=== PATIENT | female | born 1955 | race Caucasian/White ===

== ENCOUNTER 2016-11-07 12:09 | Outpatient (CLI) | payer BC ==
[2016-11-07 14:24] VITALS: BP 124/87; PULSE 99; RESP 18; TEMP 98
--- NOTE | 2016-11-07 15:16 | US ---
Ultrasound left groin HISTORY: Seroma postop Correlation to previous exam 02 November 2016 Multiseptated collection is present in the left groin as on prior exam measuring approximately 7 x 3. 6 cm by 6.7 cm. IMPRESSION: Multilocular collection left groin as on prior exam. Procedure was aborted by Dr. Farrell .
== END 2016-11-07 14:10 | disposition home or self-care (01) ==
LOC: RADPROMAIN 12:09
PROVIDERS: ATTEND Radiology Diagnostic Radiology
DX: C43.9 Malignant melanoma of skin, unspecified (principal); C77.9 Secondary and unspecified malignant neoplasm of lymph node, unspecified

== ENCOUNTER → 2016-11-14 | Outpatient (CLI) | payer BC ==
[2016-11-14 15:38] VITALS: BP 111/68; PULSE 68; RESP 18; TEMP 98.3
--- NOTE | 2016-11-14 19:11 | US ---
Ultrasound-guided left seroma fine-needle aspiration HISTORY: Chills with discharged through scan from underlying seroma. Possible infected seroma request for FNA to obtain sample. The procedure was discussed with the patient. The risks, complications, benefits and alternatives wer e discussed. Any questions were answered and informed consent was obtained. All elements of maximal barrier technique were utilized. The patient was placed supine on the ultrasound table, prepped and draped in the usual sterile fashi on. Utilizing 18-gauge needle access in the the area of concern was achieved. No sizable amount of p us or purulent material aspirated. The open wound was swabbed and sent for analysis. The patient remained stable throughout procedure and is stable upon discharge from the Department of radiology. IMPRESSION: 1. Successful ultrasound guided FNA soft tissue seroma as discussed above.
--- NOTE | 2016-11-14 19:16 | US ---
EXAMINATION TYPE: US groin extremity LT DATE OF EXAM: 11/14/2016 2:30 PM COMPARISON: NONE CLINICAL HISTORY: Seroma Findings: No sizable fluid collection is seen for percutaneous drainage tube placement. However, there are smal l pockets of fluid near the area of discharge. Majority of the area appears to be an organized appea ring seroma. IMPRESSION: 1. Organizing seroma..
== END | disposition home or self-care (01) ==
LOC: RADPROMAIN 12:15
PROVIDERS: ATTEND Radiology Diagnostic Radiology
DX: T81.4XXA Infection following a procedure, initial encounter (principal)
CPT/HCPCS: 10160; 87070; 87075; 87077; 87186; 87205

== ENCOUNTER → 2017-05-24 | Outpatient (CLI) | payer OTHER ==
--- NOTE | 2017-05-24 14:41 | CT ---
EXAMINATION TYPE: CT ChestAbdPelvis w con DATE OF EXAM: 05/24/2017 INDICATION: Melanoma. Observe for Mets COMPARISON: NONE CT DLP: 1416.70 mGycm CONTRAST: Performed with Oral Contrast and with IV Contrast, patient injected with 100 ml mL of Omnipaque 300. TECHNIQUE: Axial images at 5 mm thick sections. Reconstructed images in the coronal plane. Delayed images through the kidneys. FINDINGS: CT CHEST: Portion of the thyroid visualized is normal. No suspicious lung nodules or focal infiltrates are present. Hyperdense possibly calcified area withi n the anterior right lower lobe appears opal measuring 0.8 cm AP dimension No enlarged mediastinal or hilar adenopathy is evident. The ascending aorta diameter at the level of the main pulmonary artery is 3.5 cm. The main pulmonary artery diameter at the bifurcation is 2.2 cm. Coronary artery calcification is present. CT ABDOMEN: Liver: There is a 1.5 cm cyst superior right lobe liver. Additional subcortical cyst in the anterior medial right 2 cm and 2 punctate area measuring 0.6 cm in the left lobe liver. Spleen: Normal Pancreas: Atrophy with fatty infiltration Adrenal glands: The adrenal glands are normal. Gallbladder: Normal Kidneys: No masses are evident. No hydronephrosis is present. No cysts are present. Delayed images were obtained through the kidneys, which remain unremarkable. Aorta: Vascular calcification is within the aorta. Inferior vena cava: Normal. CT PELVIS: Loops of bowel within the abdomen and pelvis are normal. There are loops of bowel which are incom pletely distended or lack oral contrast limiting their evaluation. Appendix: Normal as visualized. Urinary bladder: Normal. Genitourinary structures: Uterus is normal. Adnexal regions are clear. Osseous structures: No suspicious lytic or sclerotic lesions. The left inguinal region has a spiculated inflammatory change which can be postsurgical in nature. Th is is somewhat of a solid appearance measuring 5.7 x 5.0 cm in size. Clinical correlation is recommen ded. This area extends out of the [id number] limiting region.. IMPRESSIONS: 1. Postsurgical changes or inflammatory changes left inguinal region discussed above. The discrete la rge hyperdense lymph nodes present previously are absent. 2. Hypodense lesions within the left lobe liver, one of which appears new, and right lobe hepatic hyp odensities. Correlation with PET/CT is recommended.
== END | disposition home or self-care (01) ==
LOC: RADCTMAIN 10:47
PROVIDERS: ATTEND Internal Medicine Hematology & Oncology
DX: K76.89 Other specified diseases of liver (principal); C43.72 Malignant melanoma of left lower limb, including hip; Z98.890 Other specified postprocedural states
CPT/HCPCS: 71260; 74177; Q9967

== ENCOUNTER → 2017-07-07 | Outpatient (CLI) | payer OTHER ==
--- NOTE | 2017-07-07 10:51 | PE ---
EXAMINATION TYPE: PET CT fusion whole body DATE OF EXAM: 07/07/2017 COMPARISON: PET/CT November 04, 2016. CT cap May 24, 2017. HISTORY: Left leg melanoma progress study. TECHNIQUE: Following the intravenous administration of 15.3 mCi of F-18 FDG, whole body images are p erformed from the top of skull to the bottom of feet. Images are reviewed on the computer in the cor onal, axial, and sagittal planes. Reconstructed rotating images are created on independent workstati on and reviewed on the computer. A localization and attenuation correction CT is performed in conju nction with the PET scan. SCAN: Subsequent Scan FINDINGS: HEAD AND NECK: No new suspicious hypermetabolic uptake is seen in the head or neck. CHEST, MEDIASTINUM, AND HILAR REGION: No new suspicious hypermetabolic uptake is seen in the chest. ABDOMEN AND PELVIS:Normal bowel and bladder uptake is present. Slightly more prominent focal hypermet abolic uptake in the proximal sigmoid colon on axial image 246 is noted and should be correlated with colonoscopy if has not been performed in last 3 years. No additional new suspicious hypermetabolic u ptake is seen in the abdomen or pelvis with particular attention to liver at area of concern on recen t CT. OSSEOUS STRUCTURES: No new suspicious hypermetabolic uptake is seen in osseous structures. EXTREMITIES: There is some persistent hypermetabolic ill-defined fluid in the medial anterior left gr oin at area of prior excision. This is diminished in size from prior exam now measuring 4.0 x 2.3 cm on axial image 14. Suspect resolving surgical and inflammatory change. No new areas of abnormal hyper metabolic uptake are present. OTHER CT: There is redemonstration of right-sided pericardial calcifications. There is opal nonhyp ermetabolic 8 x 7 mm partially calcified nodule anterior right lung base on axial image 125. There is redemonstration of 1.5 cm low dense lesion anterior right hepatic dome on axial image 134 fa voring simple cyst. There is stable 1.2 cm hypodense lesion anterior left hepatic lobe on axial image 153 presumed benign. Redemonstration of a small to moderate-sized right popliteal cyst at knee level on axial image 115. There is redemonstration asymmetric enlargement of the left lower extremity with more focal subcutane ous edema in the left mid to distal leg and ankle focal soft tissue swelling over the medial and late ral malleoli redemonstrated. There is suspected surgical change in the posterior medial mid to distal leg on axial image 179 redemonstrated. IMPRESSION: No convincing evidence of suspicious new hypermetabolic uptake to suggest melanoma recurr ence. Attention to proximal sigmoid colon, colonoscopy correlation advised. Postsurgical change left groin and lower leg level redemonstrated.
== END | disposition home or self-care (01) ==
LOC: RADPETMAIN 07:26
PROVIDERS: ATTEND Internal Medicine Hematology & Oncology
DX: C43.72 Malignant melanoma of left lower limb, including hip (principal); Z98.890 Other specified postprocedural states
CPT/HCPCS: 78816; A9552

== ENCOUNTER 2017-08-20 08:19 | Day surgery (SDC) | payer OTHER ==
[2017-08-16 11:51] VITALS: BMI 31.3
[~2017-08-20 08:19] MED LIST: LACTATED RINGERS 1,000 ML IV SCH; LIDOCAINE 1% 20 ML VIAL (10MG/ML) FOR IV START INTRADERMA PRN
[2017-08-20 10:09] VITALS: TEMP 97.8
[2017-08-20] MEDS ORDERED: PROPOFOL 10 MG/ML 20 ML VIAL IV ONE (10:15)
[2017-08-20] MEDS ORDERED: LIDOCAINE 1% INJ 10MG/ML (20 ML MDV) ONE (10:15)
--- NOTE | 2017-08-20 10:16 | P.GSHP ---
History of Present Illness H&P Date: 08/20/17 Chief Complaint: Screening colonoscopy This is a 62-year-old female who presents today for screening colonoscopy. She' s never had a colonoscopy before. She denies a significant GI complaints. Past Medical History Past Medical History: Cancer, Hypertension, Osteoarthritis (OA), Thyroid Disorder Additional Past Medical History / Comment(s): melanoma 2015-no chemo or radiation due to unnamed auto-immune disorder, takes metformin for eating disorder(nocturnal eating) not diabetes, migraine headaches, lymphedema left leg & frequent pain, recent PET scan shows something History of Any Multi-Drug Resistant Organisms: MRSA Date of last positivie culture/infection: 2011 MDRO Source:: leftlower leg Past Surgical History: Appendectomy Additional Past Surgical History / Comment(s): skin cancer removed and skin graft to left lower leg, tumor removed from thyroid, uterine fibroids, lymph nodes removed lt groin Past Anesthesia/Blood Transfusion Reactions: No Reported Reaction Smoking Status: Never smoker - Past Family History Mother Family Medical History: No Reported History Medications and Allergies Home Medications Medication Instructions Recorded Confirmed Type HYDROcodone/APAP 10-325MG [[place] 1 each PO Q6H PRN 03/25/15 08/20/17 History 10] Levothyroxine Sodium [Synthroid] 25 mcg PO DAILY 03/25/15 08/20/17 History Losartan-Hctz 50-12.5 mg [Hyzaar 1 each PO DAILY 03/25/15 08/20/17 History 50-12.5] Amitriptyline HCl [Elavil] 100 mg PO HS 07/03/16 08/20/17 History metFORMIN HCL [metFORMIN HCL ER] 1,000 mg PO DAILY 07/03/16 08/20/17 History ALPRAZolam [Xanax] 1 mg PO BID PRN 08/16/17 08/20/17 History Allergies Allergy/AdvReac Type Severity Reaction Status Date / Time No Known Allergies Allergy Verified 08/20/17 09:51 Surgical - Exam Vital Signs Temp Pulse Resp BP Pulse Ox 97.8 F 70 18 147/79 99 08/20/17 10:05 08/20/17 10:05 08/20/17 10:05 08/20/17 10:05 08/20/17 10:05 - General well developed, no distress - Eyes PERRL - ENT normal pinna - Neck no masses - Respiratory normal expansion - Cardiovascular Rhythm: regular - Abdomen Abdomen: soft, non tender Assessment and Plan Plan: We'll perform screening colonoscopy.
[2017-08-20 10:32] LABS: Glucose,Whole Blood 86 mg/dL (75-99)
--- NOTE | 2017-08-20 10:34 | P.OP ---
Date of Procedure: 08/20/17 Preoperative Diagnosis: Screening colonoscopy Postoperative Diagnosis: Transverse colon polyp, cecal polyp, diverticulosis Procedure(s) Performed: Colonoscopy Anesthesia: LORENA Surgeon: Kushal Piedra Pathology: other (Cecal, transverse colon polyp) Condition: stable Disposition: PACU Description of Procedure: The patient's placed on the endoscopy table in the lateral position. She received IV sedation. Digital rectal exam was performed which revealed a few external hemorrhoids. Flexible colonoscope was then placed patient anus passed throughout the entire colon. The ileocecal valve was visualized. The cecum was visualized. There was a small sessile polyp. This removed the forcep. Scope was withdrawn remainder the ascending colon appeared normal. In the proximal transverse colon there is another polyp seen this removed with snare. The remainder of the transverse colon appeared normal. In the descending and sigmoid colon was mild diverticular changes. Scope was then brought back into the rectum and this appeared normal. Scope was withdrawn for patient.
[2017-08-20 10:45] VITALS: RESP 16
[2017-08-20] MEDS ORDERED: HYDROmorphone 1 MG/ML 1 ML SYRINGE IVP ONE (11:00)
[2017-08-20 11:51] VITALS: BP 132/70; PULSE 89
== END 2017-08-20 12:21 | disposition home or self-care (01) ==
LOC: ORWHC2ENDO 08:19
PROVIDERS: ATTEND Surgery
DX: Z12.11 Encounter for screening for malignant neoplasm of colon (principal); D12.3 Benign neoplasm of transverse colon; K63.5 Polyp of colon; K57.30 Diverticulosis of large intestine without perforation or abscess without bleeding; K64.4 Residual hemorrhoidal skin tags; I10 Essential (primary) hypertension; E11.9 Type 2 diabetes mellitus without complications; E07.9 Disorder of thyroid, unspecified; F41.9 Anxiety disorder, unspecified; Z79.899 Other long term (current) drug therapy; Z79.84 Long term (current) use of oral hypoglycemic drugs; Z86.14 Personal history of Methicillin resistant Staphylococcus aureus infection; Z85.820 Personal history of malignant melanoma of skin
CPT/HCPCS: 45385; 45380; 88305; J2001; J1170; J2704

== ENCOUNTER → 2018-01-07 | Outpatient (CLI) | payer OTHER ==
--- NOTE | 2018-01-07 14:50 | CT ---
EXAMINATION TYPE: CT ChestAbdPelvis w con DATE OF EXAM: 01/07/2018 COMPARISON: 05/24/2017 and PET/CT dated 07/07/2017 HISTORY: Patient has no complaints at time of service. Follow up study for known left leg melanoma. CT DLP: 1804 mGycm. Automated Exposure Control for Dose Reduction was Utilized. CONTRAST: CT scan of the thorax, abdomen and pelvis is performed with IV Contrast, patient injected with 100 mL of Omnipaque 300. FINDINGS: LUNGS: The lungs are grossly clear, there is no concerning parenchymal mass or nodule identified. C alcified benign right middle lobe granuloma is noted. There is no pleural effusion or pneumothorax se en. The tracheobronchial tree is patent. MEDIASTINUM: There are no greater than 1 cm hilar or mediastinal lymph nodes. No pericardial effusi on is seen. Pericardial calcification is noted, likely sequela of prior injury or inflammation. LIVER/GB: 1.8 cm hepatic cyst and other smaller probable hepatic cysts are seen on series 3 image 43, 50, and 56. Bladder is elongated with no evidence of cholelithiasis. There is diffuse hypoattenuatio n of the hepatic parenchyma, most commonly related to hepatic steatosis. This limits evaluation for h epatic masses. PANCREAS: Mild pancreatic parenchymal atrophy is noted. No ductal dilatation. SPLEEN: No significant abnormality is seen. No splenomegaly. ADRENALS: No significant abnormality is seen. No nodularity or thickening. KIDNEYS: Too small to accurately characterize right renal lesion is redemonstrated and on series 3 im age 64 measuring 5 mm. BOWEL: No significant abnormality is seen. GENITAL ORGANS: Uterus is diffusely heterogenous and multilobulated containing dystrophic calcificati ons from degenerative uterine fibroids. LYMPH NODES: No greater than 1cm abdominal or pelvic lymph nodes are appreciated. OSSEOUS STRUCTURES: There is a 1 cm sclerotic focus within the left iliac bone that appears similar a nd stable from the exam of 05/24/2017. This lesion is indeterminate, however this is also seen in the exam of 07/25/2016 and favored to represent a benign bone island given the overall stability. OTHER: There is redemonstration of fluid along the fascial planes in the left superficial inguinal an d femoral region. This is overall decrease in size when measured in a similar fashion in comparison t o the prior 05/24/2017 and currently measuring 4.6 x 2.7 cm and previously measuring 5.0 x 5.7 cm. IMPRESSION: 1. No new evidence of visceral metastasis or adenopathy within the chest, abdomen, or pelvis. 2. Stable hepatic cysts, probable left iliac bone island, decreasing left superficial inguinal/femora l postoperative fluid collection, and too small to accurately characterize right renal lesion.
== END | disposition home or self-care (01) ==
LOC: RADCTMAIN 11:22
PROVIDERS: ATTEND Internal Medicine Hematology & Oncology
DX: C43.72 Malignant melanoma of left lower limb, including hip (principal); K76.89 Other specified diseases of liver; R19.09 Other intra-abdominal and pelvic swelling, mass and lump
CPT/HCPCS: 71260; 74177; Q9967

== ENCOUNTER → 2018-05-27 | Outpatient (CLI) | payer OTHER ==
--- NOTE | 2018-05-27 16:35 | XR ---
EXAMINATION TYPE: XR chest 2V DATE OF EXAM: 05/27/2018 COMPARISON: None HISTORY: 63-year-old female cough and shortness of breath for 2 weeks follow-up history of melanoma TECHNIQUE: PA and lateral views FINDINGS: The heart is upper limits of normal in size. Aorta and pulmonary vasculature within normal limits. So me pericardial calcifications are noted along the right atrium/right ventricle. No consolidation or p leural effusion. IMPRESSION: Stable pericardial calcifications suggesting prior infection/inflammation of the pericardium. Borderl ine heart size. No acute cardiopulmonary process.
== END | disposition home or self-care (01) ==
LOC: RADXRMAIN 14:22
PROVIDERS: ATTEND Nurse Practitioner Adult Health
DX: I31.1 Chronic constrictive pericarditis (principal); C43.72 Malignant melanoma of left lower limb, including hip; I89.0 Lymphedema, not elsewhere classified; G89.3 Neoplasm related pain (acute) (chronic); I10 Essential (primary) hypertension
CPT/HCPCS: 71046

== ENCOUNTER → 2018-06-07 | Outpatient (CLI) | payer OTHER ==
--- NOTE | 2018-06-07 13:46 | CT ---
EXAMINATION TYPE: CT ChestAbdPelvis w con DATE OF EXAM: 06/07/2018 COMPARISON: 01/07/2018 and PET/CT dated 07/07/2017 HISTORY: Patient has no complaints at time of study. Follow up for known melanoma. CT DLP: 1506.7 mGycm. Automated Exposure Control for Dose Reduction was Utilized. CONTRAST: CT scan of the thorax, abdomen and pelvis is performed with IV Contrast, patient injected with 100 mL of Isovue 300. FINDINGS: LUNGS: The lungs are grossly clear, there is no concerning parenchymal mass or nodule identified. Is redemonstration of a calcified benign right middle lobe granuloma. There is no pleural effusion or p neumothorax seen. The tracheobronchial tree is patent. MEDIASTINUM: There are no greater than 1 cm hilar or mediastinal lymph nodes. Again there is pericar dial calcification, likely sequela of prior pericarditis. No pericardial effusion is seen. LIVER/GB: Within the liver there are multiple hypoattenuated hepatic lesions the largest measuring 1. 8 cm representing a hepatic cyst and the others likely representing hepatic cysts, stable from the pr ior. No cholelithiasis. Hypoattenuation of the hepatic parenchyma most commonly relates to hepatic st eatosis and limits evaluation for hepatic masses. PANCREAS: Mild to moderate pancreatic parenchymal atrophy is seen without ductal dilatation. SPLEEN: No significant abnormality is seen. No splenomegaly. ADRENALS: Adrenal glands are somewhat diminutive but similar to the prior. KIDNEYS: The previously seen partially exophytic too small to accurately characterize right renal les ion is stable.Otherwise the kidneys enhance and excrete symmetrically without hydronephrosis. BOWEL: There is a moderate amount retained colonic stool. No evidence of dilated large or small bowel . GENITAL ORGANS: Again the uterus is heterogenous containing multiple calcifications, likely from dege nerative uterine leiomyomas. LYMPH NODES: No greater than 1cm abdominal or pelvic lymph nodes are appreciated. OSSEOUS STRUCTURES: Probable benign bone island is redemonstrated within the left iliac bone, overall unchanged from 2016 this is seen in series 3 image 106. Multilevel mild degenerative changes of the spine are noted. OTHER: Within the left superficial inguinal region and femoral region there is redemonstration of irr egular fluid along the fascial planes with extent to the skin surface. Although [id number] does no t extend to the similar location where measured on the prior exam this appears overall similar and pa rtially likely relates to fibrotic change. IMPRESSION: 1. No new evidence of visceral metastasis, osseous metastasis or adenopathy within the chest, abdomen , or pelvis. 2. Overall similar morphology of the left superficial inguinal/femoral postoperative fluid collection and probable component of fibrosis. 3. Stable hepatic cysts and other hepatic lesion that is too small to accurately characterize is also stable.
== END | disposition home or self-care (01) ==
LOC: RADCTMAIN 11:16
PROVIDERS: ATTEND Internal Medicine Hematology & Oncology
DX: K76.89 Other specified diseases of liver (principal); C43.72 Malignant melanoma of left lower limb, including hip
CPT/HCPCS: 71260; 74177; Q9967

== ENCOUNTER 2018-08-03 20:09 | Emergency (ER) | payer OTHER ==
[2018-08-03 20:17] VITALS: TEMP 98.2
--- NOTE | 2018-08-03 20:34 | ED ---
Lower Extremity Injury HPI - General Chief Complaint: Extremity Injury, Lower Stated Complaint: Fall Time Seen by Provider: 08/03/18 20:23 Source: patient, EMS, RN notes reviewed Mode of arrival: EMS Limitations: no limitations - History of Present Illness Initial Comments: This is a 63-year-old female who presents to the emergency department with chief complaint of fall injury. Patient states she was walking down her basement steps at approximately 7:30 PM. She states that her left leg gave out and she fell down 3-4 steps. She states that she landed on her left side. Patient complains of left knee pain. She states she was unable to get up off the ground and her fianc called EMS. Patient reports limited range of motion to the left knee due to pain. She states that there is a sharp shooting pain that starts at the knee and radiates up to her groin. She denies hitting her head. Denies loss of consciousness. Denies neck or back pain. Denies any other injuries or trauma. Patient does not take blood thinners. She denies abdominal pain, nausea or vomiting. She does state that she feels numbness in her left thigh, however this is baseline for her since having extensive melanoma surgery to the left groin. - Related Data Home Medications Medication Instructions Recorded Confirmed HYDROcodone/APAP 10-325MG [[place] 1 tab PO Q6H PRN 03/25/15 02/22/18 10] Levothyroxine Sodium [Synthroid] 25 mcg PO DAILY 03/25/15 02/22/18 Losartan-Hctz 50-12.5 mg [Hyzaar 1 tab PO DAILY 03/25/15 02/22/18 50-12.5] Amitriptyline HCl [Elavil] 100 mg PO HS 07/03/16 02/22/18 metFORMIN HCL [metFORMIN HCL ER] 1,000 mg PO HS 07/03/16 02/22/18 Allergies Allergy/AdvReac Type Severity Reaction Status Date / Time oxycodone Allergy Itching Verified 08/03/18 20:17 Review of Systems ROS Statement: Those systems with pertinent positive or pertinent negative responses have been documented in the HPI. ROS Other: All systems not noted in ROS Statement are negative. Past Medical History Past Medical History: Cancer, Hypertension, Osteoarthritis (OA), Thyroid Disorder Additional Past Medical History / Comment(s): melanoma 2015-no chemo or radiation due to unnamed auto-immune disorder, takes metformin for eating disorder(nocturnal eating) not diabetes, migraine headaches, lymphedema left leg & frequent pain, recent PET scan shows something History of Any Multi-Drug Resistant Organisms: MRSA Date of last positivie culture/infection: 2011 MDRO Source:: leftlower leg Past Surgical History: Appendectomy Additional Past Surgical History / Comment(s): skin cancer removed and skin graft to left lower leg, tumor removed from thyroid, uterine fibroids, lymph nodes removed lt groin Past Anesthesia/Blood Transfusion Reactions: No Reported Reaction Past Psychological History: Anxiety Smoking Status: Never smoker - Past Family History Mother Family Medical History: No Reported History General Exam - General Exam Comments Initial Comments: General: Awake and alert, well-developed; in mild distress due to pain. HEENT: Head atraumatic, normocephalic. Pupils are equal, round and reactive to light. Extraocular movements intact. Oropharynx moist without erythema or exudate. Neck: Supple. Normal ROM. Cardiovascular: Regular rate and rhythm. No murmurs, rubs or gallops. Chest symmetrical. Respiratory: Lungs clear to auscultation bilaterally. No wheezes, rales or rhonchi. Normal respiratory effort with no use of accessory muscles. Musculoskeletal: Normal range of motion of the left ankle and hip. Limited active range of motion of the left knee due to pain. There is generalized tenderness, soft tissue swelling noted. Sensation is intact. Pedal pulses are 2+ equal and palpable bilaterally. No obvious gross deformities. Skin: [place], warm and dry without rashes or lesions. Neurological: Alert and oriented x3. CN II-XII grossly intact. Speech is fluent and answers are appropriate. No focal neuro deficits. Psychiatric: Normal mood and affect. No overt signs of depression or anxiety noted. Limitations: no limitations Course Vital Signs 08/03/18 08/03/18 20:13 22:14 Temperature 98.2 F Pulse Rate 95 94 Respiratory 28 H 20 Rate Blood Pressure 154/86 136/69 O2 Sat by Pulse 100 94 L Oximetry Medical Decision Making - Medical Decision Making This is a 63-year-old female who presents to the emergency department with chief complaint of fall injury. Patient reports her left leg giving out and falling down 3-4 steps. She states she landed on her left side. Complains of left knee pain. States she is unable to bear weight or ambulate. X-ray of the left knee was obtained which revealed evidence for a possible tibial plateau fracture. For further evaluation, a computed tomography scan was obtained. This revealed slightly impacted intra-articular chip fractures of the posterior medial and lateral tibial plateaus. Knee immobilizer was placed. Patient is neurovascularly intact. Recommended non-weightbearing and following up with orthopedics on Sunday. Patient already takes [place] at home. She is provided with contact information. Patient is in agreement with plan and voices understanding. All questions were answered. - Radiology Data Radiology results: report reviewed, image reviewed X-ray left knee impression: Findings suggest tibial plateau fracture. This could be confirmed with CT. Large joint effusion. CT left knee without contrast impression: There are slightly impacted intra- articular chip fractures of the posterior medial and lateral tibial plateaus best demonstrated on the sagittal images. Moderate knee joint effusion. Disposition Clinical Impression: Tibial plateau fracture, left Disposition: HOME SELF-CARE Condition: Good Instructions: Leg Fracture (ED) Additional Instructions: Please take medications as prescribed. As discussed, please remain non- weightbearing. Please follow-up with orthopedics by calling them and setting up an appointment on Sunday. Please rest, ice, elevate. Please follow up with primary care provider within 1-2 days. Return to emergency department if symptoms should worsen or any concerns arise. Is patient prescribed a controlled substance at d/c from ED?: No Referrals: Rubén Figueroa DO [Primary Care Provider] - 1-2 days Jovani Goddard DO [Doctor of Osteopathic Medicine] - 1-2 days Time of Disposition: 23:54
[2018-08-03] MEDS ORDERED: MORPHINE SULFATE 2 MG/ML SYRINGE IVP STA (22:05)
--- NOTE | 2018-08-03 22:06 | XR ---
EXAMINATION TYPE: XR knee complete LT DATE OF EXAM: 08/03/2018 COMPARISON: 02/22/2018 HISTORY: Severe knee pain fall TECHNIQUE: 2 view left knee FINDINGS: There is a moderate joint effusion present. No acute fractures are evident. Some narrowing of the joint space may be present. There is some lucency along the lateral tibial plateau suspicious for tibial plateau fracture. IMPRESSION: 1. Findings suggestive for tibial plateau fracture. This could be confirmed with CT. 2. Large joint effusion.
--- NOTE | 2018-08-03 23:49 | CT ---
EXAMINATION TYPE: CT knee LT wo con DATE OF EXAM: 08/03/2018 COMPARISON: None HISTORY: evaluate left knee for possible tibial plateau fx CT DLP: 593.9 mGycm Automated exposure control for dose reduction was used. FINDINGS: Multiple axial sections were obtained from the level of the mid femur to the mid tibia without contra st. There is a 10 mm impacted fracture of the posterior aspect of the lateral tibial plateau. The impacti on is 5 mm. Fracture fragment measures approximately 10 x 5 mm. There is also a minimally impacted fr acture of the posterior surface of the medial tibial plateau. The depression is 3 mm. The fragment me asures 16 x 10 mm. There is knee joint effusion. The distal femur is intact. Patella is intact. IMPRESSION: THERE ARE SLIGHTLY IMPACTED INTRA-ARTICULAR CHIP FRACTURES OF THE POSTERIOR MEDIAL AND LATERAL TIBIAL PLATEAUS BEST DEMONSTRATED ON THE SAGITTAL IMAGES. MODERATE KNEE JOINT EFFUSION.
[2018-08-04 00:06] VITALS: BP 132/75; PULSE 92; RESP 16
== END 2018-08-04 00:09 | disposition home or self-care (01) ==
LOC: EC 20:09
DX: S82.142A Displaced bicondylar fracture of left tibia, initial encounter for closed fracture (principal); I10 Essential (primary) hypertension; M19.90 Unspecified osteoarthritis, unspecified site; E07.9 Disorder of thyroid, unspecified; F50.9 Eating disorder, unspecified; F41.9 Anxiety disorder, unspecified; Z85.820 Personal history of malignant melanoma of skin; Z86.14 Personal history of Methicillin resistant Staphylococcus aureus infection; Z79.84 Long term (current) use of oral hypoglycemic drugs; Z79.899 Other long term (current) drug therapy; Z88.5 Allergy status to narcotic agent; Z98.890 Other specified postprocedural states; W10.9XXA Fall (on) (from) unspecified stairs and steps, initial encounter; Y93.01 Activity, walking, marching and hiking; Y92.009 Unspecified place in unspecified non-institutional (private) residence as the place of occurrence of the external cause
CPT/HCPCS: 99284; 96374; 73562; 73700; L1830; J2270

== ENCOUNTER → 2019-01-13 | Outpatient (CLI) | payer MEDICARE ==
--- NOTE | 2019-01-14 09:06 | CT ---
EXAMINATION TYPE: CT ChestAbdPelvis w con DATE OF EXAM: 01/13/2019 COMPARISON: 06/07/2018 HISTORY: f/u mets, melanoma CT DLP: 2077 mGycm Automated exposure control for dose reduction was used. CONTRAST: CT scan of the chest, abdomen and pelvis is performed with Oral Contrast and with IV Contrast, patien t injected with 100 mL of Isovue 300. FINDINGS: LUNGS: The lungs are grossly clear, there is no concerning parenchymal mass or nodule identified. T here is no pleural effusion or pneumothorax seen. The tracheobronchial tree is patent. Calcified nod ule right middle lobe is stable. Most likely the basis of granuloma. There is a 1 to 2 mm nodule supe rior segment right lower lobe image 33.Coronal image 79 demonstrates a punctate 1 mm subpleural nodul e small to characterize. Findings retrospectively stable. MEDIASTINUM: There are no greater than 1 cm hilar or mediastinal lymph nodes. No pericardial effusi on is seen. Again there is pericardial calcification, likely sequela of prior pericarditis. No peric ardial effusion is seen. OTHER: No additional significant abnormality is seen. LIVER/GB: Within the liver there are multiple hypoattenuated hepatic lesions the largest measuring 1. 8 cm representing a hepatic cyst and the others likely representing hepatic cysts, stable from the pr ior. No cholelithiasis. Hypoattenuation of the hepatic parenchyma most commonly relates to hepatic st eatosis and limits evaluation for hepatic masses. . PANCREAS: Mild to moderate pancreatic parenchymal atrophy is seen without ductal dilatation. SPLEEN: No significant abnormality is seen. ADRENALS: 5 mm nodularity left adrenal gland retrospectively stable.. KIDNEYS: The previously seen partially exophytic too small to accurately characterize right renal les ion is stable.Otherwise the kidneys enhance and excrete symmetrically without hydronephrosis BOWEL: No significant abnormality is seen. REPRODUCTIVE ORGANS: Again the uterus is heterogenous containing multiple calcifications, likely from degenerative uterine leiomyomas. LYMPH NODES: No greater than 1 cm abdominal or pelvic lymph nodes are appreciated. Shotty adenopathy stable. OSSEOUS STRUCTURES: Probable benign bone island is redemonstrated within the left iliac bone, overall unchanged from 2016. Tiny sclerotic foci within each proximal femur also is stable to small to kristi cterize. Likely related to bone island. No destructive changes. Multilevel mild degenerative changes of the spine are noted. Arthropathy of the hips. OTHER: Within the left superficial inguinal region and femoral region there is redemonstration of irr egular density along the fascial planes with extension to the skin surface. Although [id number] do es not extend to the similar location where measured on the prior exam this appears overall similar a nd partially likely relates to scarring. IMPRESSION: 1. No new evidence of visceral metastasis, osseous metastasis or adenopathy within the chest, abdomen , or pelvis. Punctate nodules measuring 1 mm within the right lung are retrospectively stable. 2. Overall similar morphology of the left superficial inguinal/femoral postoperative low density vikas on and probable component of scarring. 3. Stable hepatic cysts and other hepatic lesion that is too small to accurately characterize is also stable. 4. Stable right renal lesion too small to characterize. 5. Correlate for fibroid uterus. 6. Pericardial calcification likely on the basis of previous pericarditis.
== END | disposition home or self-care (01) ==
LOC: RADCTMAIN 15:39
PROVIDERS: ATTEND Internal Medicine Hematology & Oncology
DX: Z03.89 Encounter for observation for other suspected diseases and conditions ruled out (principal); R91.8 Other nonspecific abnormal finding of lung field; K76.89 Other specified diseases of liver; N28.9 Disorder of kidney and ureter, unspecified; C43.72 Malignant melanoma of left lower limb, including hip; Z88.5 Allergy status to narcotic agent
CPT/HCPCS: 71260; 74177; Q9967

== ENCOUNTER → 2019-08-12 | Outpatient (CLI) | payer MEDICARE ==
--- NOTE | 2019-08-12 16:21 | CT ---
EXAMINATION TYPE: CT ChestAbdPelvis w con DATE OF EXAM: 08/12/2019 COMPARISON: 01/13/2019 and 06/07/2018 HISTORY: 64-year-old female Melanoma and observe for mets. TECHNIQUE: Contiguous axial scanning of the chest, abdomen, and pelvis performed with IV Contrast, pa tient injected with 100ml mL of Isovue 300. Delayed images through the kidneys were obtained. Coronal /sagittal reconstructions performed. CT DLP: 1896.1 mGycm Automated exposure control for dose reduction was used. FINDINGS: CHEST: Heart normal size without pericardial effusion. Stable pericardial calcifications along the right shameka e of the heart suggests sequela of prior pericarditis or inflammation. Aorta normal caliber with conventional arch vessel branching anatomy. No thoracic lymphadenopathy by CT size criteria. Some mild hazy groundglass posterior aspect of the lungs probably dependent atelectasis. Some chronic high density endobronchial opacification in the basilar right middle lobe measuring 7 mm is unchanged back to 06/07/2018. No consolidation or pleural effusion. ABDOMEN: Stable 1.7 cm anterior mid hepatic cyst. A second smaller anterior left liver lobe cyst measuring 8 m m is also stable. Portal venous system is patent. No biliary ductal dilatation. Gallbladder, adrenal glands, left kidney, spleen, and pancreas appear within normal limits. Tiny jg ical cyst medial right kidney is unchanged. No dilated small bowel, free fluid, or free air. No mesenteric or retroperitoneal lymphadenopathy. Small fatty umbilical hernia. Scattered mild stool. No pericolonic inflammatory change. Pelvis: Anteverted uterus with a calcified right mid body fibroid measuring 1.1 cm. The bladder is urine dist ended. Small bilateral ovaries. No abnormal fluid collection in the pelvis or pelvic lymphadenopathy. Stable irregular soft tissue density along the left inguinal region tracking along the anterior media l upper left thigh suggesting chronic scarring from postsurgical/posttreatment change. Bones: Degenerative changes of both hips. Focal area of sclerosis within the anterior left iliac bone, axial image 104 remains unchanged suggesting a benign etiology. Degenerative disc disease lower lumbar spi ne. No osseous destructive process. IMPRESSION: 1. STABLE IRREGULAR SOFT TISSUE DENSITY AND CONTOUR DEFORMITY ALONG THE LEFT INGUINAL AND ANTEROMEDIA L UPPER LEFT THIGH REGION SUGGESTING CHRONIC SCARRING. 2. STABLE 7 MM RIGHT MIDDLE LOBE NODULE BACK TO AT LEAST 06/07/2018 SUGGESTING A BENIGN ETIOLOGY. 3. STABLE FOCAL SCLEROSIS ANTERIOR LEFT ILIAC BONE SUGGESTING A BENIGN ETIOLOGY SUCH A BONE ISLAND . NO EVIDENCE FOR RECURRENT DISEASE.
== END | disposition home or self-care (01) ==
LOC: RADCTMAIN 12:24
PROVIDERS: ATTEND Internal Medicine Hematology & Oncology
DX: C43.72 Malignant melanoma of left lower limb, including hip (principal); Z88.5 Allergy status to narcotic agent
CPT/HCPCS: 71260; 74177; Q9967 ×2

== ENCOUNTER → 2020-02-16 | Outpatient (CLI) | payer MEDICARE ==
--- NOTE | 2020-02-16 16:20 | CT ---
EXAMINATION TYPE: CT ChestAbdPelvis w con DATE OF EXAM: 02/16/2020 INDICATION: f/u melanoma COMPARISON: 08/12/2019, 06/07/2018. CT DLP: 1797.7 mGycm CONTRAST: Performed with Oral Contrast and with IV Contrast, patient injected with 100 mL of Isovue 300. TECHNIQUE: Axial images at 5 mm thick sections. Reconstructed images in the coronal plane. Delayed images through the kidneys. FINDINGS: CT CHEST: Portion of the thyroid visualized is normal. Previous irregular density in the right middle lobe near the major fissure has enlarged and currently measures 1.0 cm. When remeasured, this appears stable from the comparison of 08/12/2019. Comparison i s also made with 06/07/2018 and is stable. No enlarged mediastinal or hilar adenopathy is evident. The ascending aorta diameter at the level of the main pulmonary artery is 3.5 cm. The main pulmonary artery diameter at the bifurcation is 2.8 cm. Dense coronary artery calcifications present. There ma y be some calcification along the right pericardial bowel wall. CT ABDOMEN: Liver: There are hypodensities within the superior right lobe liver present previously. This currentl y measures 1.9 cm which is larger than the 1.7 cm. An additional hypodensity along the anterior left lobe liver, series 3 image 51 measures 0.9 cm, previous measurement 0.8 cm. These appear to be presen t in the 06/07/2018 comparison. Spleen: Normal Pancreas: Fatty infiltrated Adrenal glands: The adrenal glands are normal. Gallbladder: Normal Kidneys: No masses are evident. No hydronephrosis is present. No cysts are present. Delayed images were obtained through the kidneys, which remain unremarkable. Aorta: Vascular calcification is within the aorta. Inferior vena cava: Normal. CT PELVIS: Loops of bowel within the abdomen and pelvis are normal. There are loops of bowel lacking oral co ntrast or with incomplete distention limiting their evaluation. Appendix: Not visualized. No suspicious tubular structures or inflammatory changes are evident. Urinary bladder: Decompressed and cannot be well evaluated Genitourinary structures: The uterus contains several calcifications likely calcified fibroids. Adnex al regions appear within normal limits. Osseous structures: No suspicious lytic or sclerotic lesions. Tiny bone island may be within the neck of the right femur. IMPRESSIONS: 1. Stable density right middle lobe. 2. Hypodensities within the liver were present previously.
== END | disposition home or self-care (01) ==
LOC: RADCTMAIN 13:23
PROVIDERS: ATTEND Internal Medicine Hematology & Oncology
DX: Z03.89 Encounter for observation for other suspected diseases and conditions ruled out (principal); K76.89 Other specified diseases of liver; R91.8 Other nonspecific abnormal finding of lung field; C43.72 Malignant melanoma of left lower limb, including hip; Z88.5 Allergy status to narcotic agent
CPT/HCPCS: 71260; 74177; Q9967

== ENCOUNTER → 2020-08-24 | Outpatient (CLI) | payer MEDICARE ==
[2020-08-24 11:44] LABS: African American GFR (CKD) >90 (>60 ml/min/1.73 sqM); Blood Urea Nitrogen 15 mg/dL (7-17); Non-African American GFR(CKD) 81 (>60 ml/min/1.73 sqM)
--- NOTE | 2020-08-24 13:18 | CT ---
EXAMINATION TYPE: CT ChestAbdPelvis w con DATE OF EXAM: 08/24/2020 COMPARISON: Prior CT February 16, 2020 and older CTs. Prior PET/CT 2017 HISTORY: F/U for melanoma CT DLP: 1744.4 mGycm. Automated Exposure Control for Dose Reduction was Utilized. CONTRAST: CT scan of the thorax, abdomen and pelvis is performed with IV Contrast, patient injected with 100 mL of Isovue 300. FINDINGS: LUNGS: Persistent small areas of groundglass opacity medial posterior left lung. No new nodules or ma sses. Calcified nodules right middle lobe near diaphragm redemonstrated. No pleural effusion or pneum othorax. MEDIASTINUM: There are no greater than 1 cm hilar or mediastinal lymph nodes. No cardiomegaly or pe ricardial effusion is seen. Right curvilinear pericardial calcifications redemonstrated. LIVER/GB: Stable 1.7 cm thin-walled right anterior hepatic dome axial image 42. PANCREAS: Mild generalized fat replaced atrophy. SPLEEN: No significant abnormality is seen. ADRENALS: No significant abnormality is seen. KIDNEYS: Symmetric cortical medullary uptake and excretion without hydronephrosis seen bilaterally. BOWEL: No significant abnormality is seen. GENITAL ORGANS: Anteverted uterus. Right-sided calcification. LYMPH NODES: No new greater than 1cm abdominal or pelvic lymph nodes are appreciated. Scar tissue and ill-defined fluid left groin region redemonstrated. OSSEOUS STRUCTURES: Stable sclerotic focus left iliac bone coronal image 56 presumed benign. OTHER: No significant additional abnormality is seen. IMPRESSION: No new mass or adenopathy to suggest active metastatic melanoma recurrence.
== END | disposition home or self-care (01) ==
LOC: RADCTMAIN 10:59
PROVIDERS: ATTEND Internal Medicine Hematology & Oncology
DX: C43.72 Malignant melanoma of left lower limb, including hip (principal)
CPT/HCPCS: 82565; 84520; 71260; 74177; 36415; Q9967

== ENCOUNTER → 2021-02-22 | Outpatient (CLI) | payer MEDICARE ==
[2021-02-22 12:20] LABS: African American GFR (CKD) >90 (>60 ml/min/1.73 sqM); Blood Urea Nitrogen 18 mg/dL (7-17); Non-African American GFR(CKD) >90 (>60 ml/min/1.73 sqM)
--- NOTE | 2021-02-22 14:44 | CT ---
EXAMINATION TYPE: CT ChestAbdPelvis w con DATE OF EXAM: 02/22/2021 COMPARISON: Most recent CT August 24, 2020 and older studies HISTORY: melanoma (Lt arm and Lt leg) CT DLP: 1942.2 mGycm. Automated Exposure Control for Dose Reduction was Utilized. CONTRAST: CT scan of the thorax, abdomen and pelvis is performed with oral and with IV Contrast, patient inject ed with 100 mL of Isovue 300. FINDINGS: LUNGS: Persistent small areas of groundglass opacity medial posterior left lung. New similar groundgl ass opacity posterior medial right mid to lower lung. Linear scarring in the lingula. No new nodules or masses. Calcified nodules right middle lobe near diaphragm redemonstrated axial image 38. No pleur al effusion or pneumothorax. MEDIASTINUM: There are no greater than 1 cm hilar or mediastinal lymph nodes. No cardiomegaly or pe ricardial effusion is seen. Right curvilinear pericardial calcifications redemonstrated. Other: Stable asymmetrically prominent but subcentimeter left axillary lymph nodes. LIVER/GB: Stable 1.7 cm thin-walled right anterior hepatic dome axial image 44. A few smaller subcent imeter low dense lesions inferior to this anterior aspect of liver axial image 52 are stable presumed benign. PANCREAS: Mild to moderate generalized fat replaced atrophy. SPLEEN: No significant abnormality is seen. ADRENALS: No significant abnormality is seen. KIDNEYS: Symmetric cortical medullary uptake and excretion without hydronephrosis seen bilaterally. N ew subcentimeter exophytic lesion medially right kidney upper to mid pole level image 68 series 3 is too small to further characterize, short-term follow-up is advised BOWEL: Oral contrast reaches level of terminal ileum. No suspicious small or large bowel dilatation GENITAL ORGANS: Anteverted uterus. Right-sided calcification redemonstrated favored small calcified f ibroid. LYMPH NODES: No new greater than 1cm abdominal or pelvic lymph nodes are appreciated. Scar tissue and ill-defined fluid left groin region redemonstrated. There is stable prominent but subcentimeter left groin lymph node axial image 129 medial to the vessels. OSSEOUS STRUCTURES: Stable sclerotic focus left iliac bone coronal image 46 presumed benign. Addition al tiny sclerotic focus right proximal femur coronal image 46 stable. Moderate disc space narrowing L 4-L5 and L5-S1 levels redemonstrated. OTHER: Moderate size fat-containing umbilical hernia. IMPRESSION: No new mass or adenopathy to suggest active metastatic melanoma recurrence.
== END | disposition home or self-care (01) ==
LOC: RADCTMAIN 11:30
PROVIDERS: ATTEND Internal Medicine Hematology & Oncology
DX: Z03.89 Encounter for observation for other suspected diseases and conditions ruled out (principal); C43.72 Malignant melanoma of left lower limb, including hip; Z88.8 Allergy status to other drugs, medicaments and biological substances
CPT/HCPCS: 82565; 84520; 71260; 74177; 36415; Q9967

== ENCOUNTER → 2021-09-01 | Outpatient (CLI) | payer MEDICARE ==
[2021-09-01 14:53] LABS: African American GFR (CKD) >90 (>60 ml/min/1.73 sqM); Blood Urea Nitrogen 12 mg/dL (7-17); Non-African American GFR(CKD) >90 (>60 ml/min/1.73 sqM)
--- NOTE | 2021-09-01 15:39 | CT ---
EXAMINATION TYPE: CT ChestAbdPelvis w con DATE OF EXAM: 09/01/2021 COMPARISON: Prior CT February 22, 2021 and older studies. HISTORY: Melanoma of left arm and leg. CT DLP: 1657 mGycm. Automated Exposure Control for Dose Reduction was Utilized. CONTRAST: CT scan of the thorax, abdomen and pelvis is performed with oral and with IV Contrast, patient inject ed with 100 mL of Isovue M300. FINDINGS: LUNGS: No new nodules or masses. Some mild dependent atelectasis otherwise lungs are clear. Calcified nodules right middle lobe near diaphragm redemonstrated axial image 35 are redemonstrated. No pleura l effusion or pneumothorax. MEDIASTINUM: There are no new greater than 1 cm hilar or mediastinal lymph nodes. No cardiomegaly o r pericardial effusion is seen. Right curvilinear pericardial calcifications redemonstrated. Other: Stable asymmetrically prominent but subcentimeter left axillary lymph nodes. LIVER/GB: Stable 1.7 cm thin-walled right anterior hepatic dome axial image 39. A few smaller subcent imeter low dense lesions inferior to this anterior aspect of liver are stable and presumed benign. PANCREAS: Mild to moderate generalized fat replaced atrophy is redemonstrated. SPLEEN: No significant abnormality is seen. ADRENALS: No significant abnormality is seen. KIDNEYS: Symmetric cortical medullary uptake and excretion without hydronephrosis seen bilaterally. S ubcentimeter exophytic lesion medially right kidney upper to mid pole level image 61 series 3 is slig htly more prominent and appears to enhance making more suspicious. BOWEL: Oral contrast reaches level of terminal ileum. No suspicious small or large bowel dilatation GENITAL ORGANS: Anteverted uterus. Heterogeneity with calcification favoring fibroid uterus is redemo nstrated. LYMPH NODES: No new greater than 1cm abdominal or pelvic lymph nodes are appreciated. Scar tissue and ill-defined fluid left groin region redemonstrated. There is stable prominent but subcentimeter left groin lymph node axial image 129 medial to the vessels. OSSEOUS STRUCTURES: Stable sclerotic focus left iliac bone coronal image 53 presumed benign. Addition al tiny sclerotic focus right proximal femur coronal image 53 stable. Moderate joint space loss both hips redemonstrated. More prominent subchondral cystic change and spurring right hip versus the left hip redemonstrated. Moderate disc space narrowing L4-L5 and L5-S1 levels redemonstrated. OTHER: Moderate size fat-containing umbilical hernia. Scar tissue left groin region redemonstrated ex tending inferiorly and medially. Adjacent atrophy of anteromedial left thigh muscle again seen. IMPRESSION: No new mass or adenopathy to suggest active metastatic melanoma recurrence. There is how ever is slowly enlarging enhancing exophytic 9 mm lesion medially from the right kidney upper to mid pole level worrisome for focal renal cell carcinoma until proven otherwise. Advise surgical and/or in terventional/ablation referral to further evaluate and/or treat.
== END | disposition home or self-care (01) ==
LOC: RADCTMAIN 13:33
PROVIDERS: ATTEND Internal Medicine Hematology & Oncology
DX: C43.62 Malignant melanoma of left upper limb, including shoulder (principal); N28.9 Disorder of kidney and ureter, unspecified
CPT/HCPCS: 82565; 84520; 71260; 74177; 36415; Q9967 ×2

== ENCOUNTER → 2022-02-27 | Outpatient (CLI) | payer MEDICARE ==
[2022-02-27 14:10] LABS: African American GFR (CKD) >90 (>60 ml/min/1.73 sqM); Blood Urea Nitrogen 19 mg/dL (7-17); Non-African American GFR(CKD) 89 (>60 ml/min/1.73 sqM)
--- NOTE | 2022-02-27 15:22 | CT ---
EXAMINATION TYPE: CT ChestAbdPelvis w con DATE OF EXAM: 02/27/2022 COMPARISON: 09/01/2021 HISTORY: C43.[address] DLP: 1677 mGycm CONTRAST: CT scan of the chest, abdomen and pelvis is performed with Oral Contrast and with IV Contrast, patien t injected with 100 mL of [address]. [address] Chest: LUNGS: The lungs are clear and free of infiltrate or atelectasis. Calcified granuloma right middle lo be is unchanged. No new pulmonary nodules are identified. No pleural effusion or CT evidence of inter stitial lung disease. MEDIASTINUM: Thoracic aorta is of normal caliber. The heart is not enlarged. No evidence for media stinal mass or adenopathy. HILAR STRUCTURES: No evidence for mass. No hilar adenopathy is appreciated. OTHER: No significant abnormality. CONTRAST CT ABDOMEN AND PELVIS FINDINGS: LIVER/GB: No calcified gallstones. Multiple hypoattenuating lesions involving the liver are felt to reflect cysts and remain stable. Biliary tree is of normal caliber. PANCREAS: No inflammation. No distinct mass. SPLEEN: No splenic enlargement. No lesion seen. ADRENALS: No nodule. No thickening. KIDNEYS/BLADDER: No hydronephrosis. No nephrolithiasis. Slight enlargement in right upper pole exop hytic lesion medially currently measuring 1.1 cm versus 9.3 mm previously. Renal cell carcinoma not e xcluded. No additional lesions evident. BOWEL: Normal appendix. Normal bowel caliber. No inflammation. GENITAL ORGANS: Calcified uterine fibroid noted. No adnexal masses. LYMPH NODES: No greater than 1cm abdominal or pelvic lymph nodes are appreciated. AORTA: No significant abnormality. OSSEOUS STRUCTURES: No significant abnormality is seen. OTHER: No significant additional abnormality is seen. IMPRESSION: 1. Slight enlargement in right upper pole exophytic lesion medially currently measuring 1.1 cm versus 9.3 mm previously. Renal cell carcinoma not excluded. 2. No CT evidence to suggest metastatic disease at this time.
== END | disposition home or self-care (01) ==
LOC: RADCTMAIN 10:11
PROVIDERS: ATTEND Internal Medicine Hematology & Oncology
DX: C43.72 Malignant melanoma of left lower limb, including hip (principal)
CPT/HCPCS: 82565; 84520; 71260; 74177; 36415; Q9967

== ENCOUNTER → 2022-03-30 | Outpatient (CLI) | payer MEDICARE ==
--- NOTE | 2022-03-31 09:30 | USB ---
Reason for Exam: Additional evaluation requested from abnormal screening. Patient History: Menarche at age 14. First Full-Term at age 35. Late child-bearing (after 30). Postmenopausal. Estrogen and Progesterone for 1 year from age 39 until age 40. 1989, Excisional Biopsy on the Left side. 1989, Excisional Biopsy on the Right side. Risk Values: Pura 5 year model risk: 3.2%. NCI Lifetime model risk: 11.1%. Prior Study Comparison: 03/24/2022 Bilateral MG screening mammo w CAD, PH. Findings: Left limited breast ultrasound including focal area of concern, retroareolar and axilla demonstrates a 0.7 x 0.6 x 0.3cm oval, cystic lesion at 7 o'clock, 3cm from the nipple. These results were verbally communicated with the patient at the time of exam. Overall Assessment: Benign, BI-RAD 2 Management: Screening Mammogram of both breasts in 1 year. Electronically signed and approved by: Ej Martinez D.O. Radiologis
== END | disposition home or self-care (01) ==
LOC: RADUSWWP 17:54
PROVIDERS: ATTEND Internal Medicine Hematology & Oncology
DX: N60.02 Solitary cyst of left breast (principal); Z78.0 Asymptomatic menopausal state

== ENCOUNTER → 2022-09-15 | Outpatient (CLI) | payer MEDICARE ==
[2022-09-15 12:39] LABS: African American GFR (CKD) >90 (>60 ml/min/1.73 sqM); Blood Urea Nitrogen 13 mg/dL (7-17); Non-African American GFR(CKD) >90 (>60 ml/min/1.73 sqM)
--- NOTE | 2022-09-15 15:13 | CT ---
EXAMINATION TYPE: CT ChestAbdPelvis w con DATE OF EXAM: 09/15/2022 INDICATION: follow up Hx Melonoma lt Leg, appy and sx groin Priors in PACS COMPARISON: 02/27/2022 CT DLP: 1286.60 mGycm CONTRAST: Performed with Oral Contrast and with IV Contrast, patient injected with 70 mL of Isovue 300. TECHNIQUE: Axial images at 5 mm thick sections. Reconstructed images in the coronal plane. Delayed images through the kidneys. FINDINGS: CT CHEST: Portion of the thyroid visualized is normal. There is a calcification within the right mid lung measuring 1.0 cm. Series 5 image 36. Vague pneumon itis changes within the lingula. Series 5 image 31. Otherwise, No suspicious lung nodules or focal in filtrates are present. No enlarged mediastinal or hilar adenopathy is evident. The ascending aorta diameter at the level of the main pulmonary artery is 3.3 cm. The main pulmonary artery diameter at the bifurcation is 2.6 cm. Some pericardial calcifications along the right medias tinal border. CT ABDOMEN: Liver: Normal Spleen: Normal Pancreas: Normal Adrenal glands: The adrenal glands are normal. Gallbladder: Normal Kidneys: No masses are evident. No hydronephrosis is present. Complex cyst on the mid lateral right kidney. Series 6 image 29 cm 1.1 cm. This is stable from comparison. Delayed images were obtained t hrough the kidneys, which remain unremarkable. Aorta: Vascular calcification is within the aorta. Inferior vena cava: Normal. CT PELVIS: Loops of bowel within the abdomen and pelvis are normal. There are loops of bowel which are incom pletely distended or lack oral contrast limiting their evaluation. Appendix: Not visualized. No dilated tubular structure or inflammatory changes evident. Urinary bladder: Normal. Genitourinary structures: Uterus is present. Calcified fibroid is in the right fundus. Adnexal region s are unremarkable. Osseous structures: No suspicious lytic or sclerotic lesions are evident. There may be a bone island within the right femoral neck. A 1.5 cm sclerotic area with smooth margins may be within the left yue um above the acetabulum. Sclerotic metastasis is not excluded at this location. Appears stable from c omparison. IMPRESSIONS: 1. Calcification right lung base appears stable from comparison. 2. Stable pericardial calcification on the right. 3. Stable complex cyst medial right kidney. 4. No suspicious changes to suggest metastatic melanoma.
== END | disposition home or self-care (01) ==
LOC: RADCTMAIN 11:30
PROVIDERS: ATTEND Internal Medicine Hematology & Oncology
DX: C43.72 Malignant melanoma of left lower limb, including hip (principal); N28.1 Cyst of kidney, acquired; I31.1 Chronic constrictive pericarditis; R91.8 Other nonspecific abnormal finding of lung field
CPT/HCPCS: 82565; 84520; 71260; 74177; 36415; Q9967

== ENCOUNTER → 2022-10-13 | Outpatient (CLI) | payer MEDICARE ==
--- NOTE | 2022-10-14 03:32 | MR ---
EXAMINATION TYPE: MR hip LT wo/w con DATE OF EXAM: 10/13/2022 COMPARISON: None HISTORY: History of melanoma, left hip pain, swelling, locking, and limited movement. CONTRAST: Standard multiplanar, multisequence MRI departmental protocol images were obtained without contrast a nd with 9 mL intravenous Gadavist gadolinium contrast. Multiplanar multi echo imaging obtained of the pelvis and both hips without and with the IV contrast. The pelvic ring is intact. Proximal femurs are intact. There is some increased hip joint fluid on the right side compared to the left. The acetabula appear intact. There is some narrowing of the right h ip joint space more than the left. There is right-sided acetabular spurring. There is right-sided fem oral head spur formation. No evidence of avascular necrosis. The bladder distends smoothly. There is an irregular area of increased fluid signal in the medial subcutaneous fat over the anterior left upp er thigh that measures 5 x 3 cm. No free fluid in the pelvis. No evidence of a soft tissue mass. Sacroiliac joints are intact. There i s a small left-sided hip joint effusion. 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 Right hip joint effusion la rger than the left. No fracture seen. No evidence of avascular necrosis. No evidence of soft tissue m ass. There is subcutaneous fluid and stranding seen over the medial anterior left upper thigh that is none nhancing and could be hematoma or seroma.
== END | disposition home or self-care (01) ==
LOC: RADMRIMAIN 21:15
PROVIDERS: ATTEND Internal Medicine Hematology & Oncology
DX: C43.72 Malignant melanoma of left lower limb, including hip (principal); M16.11 Unilateral primary osteoarthritis, right hip; M25.452 Effusion, left hip; M25.451 Effusion, right hip; Z85.820 Personal history of malignant melanoma of skin
CPT/HCPCS: 73723; A9585

== ENCOUNTER 2023-01-29 20:28 | Emergency (ER) | payer MEDICARE ==
[2023-01-29 20:40] VITALS: BP 137/86; PULSE 94; RESP 18; TEMP 97.7
--- NOTE | 2023-01-29 21:27 | ED ---
Head Injury HPI - General Chief complaint: Head Injury Stated complaint: fall/head injury Time Seen by Provider: 01/29/23 20:41 Source: patient Mode of arrival: ambulatory Limitations: no limitations - History of Present Illness Initial comments: Patient is a 67-year-old female presenting with chief complaint of headache. Patient states that she fell out of bed last night hitting her head on a nightstand. She admits to pain at the back of the head as well as right shoulder pain and lower back pain. Patient has chronic right shoulder pain. S he denies any loss of consciousness or use of blood thinners. No numbness or tingling. No nausea or vomiting. She has been taking ibuprofen and [place] for pain control. No loss of bowel or bladder control or saddle paresthesia. No pain shooting down the legs. No abdominal pain, chest pain, difficulty breathing. - Related Data Home Medications Medication Instructions Recorded Confirmed HYDROcodone/APAP 10-325MG [[place] 1 tab PO Q4H PRN 03/25/15 01/19/22 10] Levothyroxine Sodium [Synthroid] 25 mcg PO DAILY 03/25/15 01/19/22 Amitriptyline HCl [Elavil] 100 mg PO HS 07/03/16 01/19/22 Ibuprofen [Motrin] 800 mg PO Q8H PRN 01/19/22 01/19/22 Losartan [Cozaar] 50 mg PO DAILY 01/19/22 01/19/22 hydroCHLOROthiazide [Hydrodiuril] 12.5 mg PO DAILY 01/19/22 01/19/22 Allergies/Adverse reactions: Allergies Allergy/AdvReac Type Severity Reaction Status Date / Time oxycodone Allergy Itching/Ghanshyam Verified 01/29/23 20:36 h Review of Systems ROS Statement: Those systems with pertinent positive or pertinent negative responses have been documented in the HPI. ROS Other: All systems not noted in ROS Statement are negative. Past Medical History Past Medical History: Cancer, Hypertension, Osteoarthritis (OA), Thyroid Disorder Additional Past Medical History / Comment(s): melanoma 2015-no chemo or radiation due to unnamed auto-immune disorder, takes metformin for eating disorder(nocturnal eating) not diabetes, migraine headaches, lymphedema left leg & frequent pain, recent PET scan shows something History of Any Multi-Drug Resistant Organisms: MRSA Date of last positivie culture/infection: 2012 MDRO Source:: leftlower leg Past Surgical History: Appendectomy Additional Past Surgical History / Comment(s): skin cancer removed and skin graft to left lower leg, tumor removed from thyroid, uterine fibroids, lymph nodes removed lt groin Past Anesthesia/Blood Transfusion Reactions: No Reported Reaction Past Psychological History: Anxiety Smoking Status: Never smoker Past Alcohol Use History: None Reported Past Drug Use History: None Reported - Past Family History Mother Family Medical History: No Reported History General Exam Limitations: no limitations General appearance: alert, in no apparent distress Head exam: Present: atraumatic, normocephalic, normal inspection Eye exam: Present: normal appearance, PERRL, EOMI. Absent: scleral icterus, conjunctival injection, periorbital swelling Pupils: Present: normal accommodation Neck exam: Present: normal inspection, full ROM. Absent: tenderness Respiratory exam: Present: normal lung sounds bilaterally. Absent: respiratory distress, wheezes, rales, rhonchi, stridor Cardiovascular Exam: Present: regular rate, normal rhythm, normal heart sounds. Absent: systolic murmur, diastolic murmur, rubs, gallop, clicks Neurological exam: Present: alert, oriented X3, CN II-XII intact Expanded Patient oriented to: Present: person, place, time Speech: Present: fluid speech Cranial nerves: EOM's Intact: Normal Motor strength exam: RUE: 5, LUE: 5, RLE: 5, LLE: 5 Eye Response: (4) open spontaneously Motor Response: (6) obeys commands Verbal Response: (5) oriented [place] Total: 15 Psychiatric exam: Present: normal affect, normal mood Skin exam: Present: warm, dry, intact, normal color. Absent: rash Course Vital Signs 01/29/23 20:37 Temperature 97.7 F Pulse Rate 94 Respiratory 18 Rate Blood Pressure 137/86 O2 Sat by Pulse 98 Oximetry Medical Decision Making - Medical Decision Making Was pt. sent in by a medical professional or institution (, PA, WATERPROOF COATING MACHINE TENDER, urgent care, hospital, or group home...) When possible be specific @ -No Did you speak to anyone other than the patient for history (EMS, parent, family, police, friend...)? What history was obtained from this source @ -No Did you review nursing and triage notes (agree or disagree)? Why? @ -I reviewed and agree with nursing and triage notes Were old charts reviewed (outside hosp., previous admission, EMS record, old EKG, old radiological studies, urgent care reports/EKG's, group home records)? Report findings @ -No old charts were reviewed Differential Diagnosis (chest pain, altered mental status, abdominal pain women, abdominal pain men, vaginal bleeding, weakness, fever, dyspnea, syncope, headache, dizziness, GI bleed, back pain, seizure, CVA, palpatations, mental health, musculoskeletal)? @ -Differential Musculoskeletal Muscular strain, contusion, ligament sprain, fracture, arthritis, septic arthritis, bursitis, cellulitis, muscle spasm, nerve compression, DVT, arterial occlusion, herpes zoster, electrolyte abnormality, tumor.... This is not meant to be in all inclusive list EKG interpreted by me (3pts min.). @ -As above X-rays interpreted by me (1pt min.). @ -X-ray of the shoulder shows no fracture or dislocation. X-ray of the lumbar spine shows no fracture. CT interpreted by me (1pt min.). @ -CT of the brain and cervical spine shows no acute intracranial process or fracture of the cervical spine U/S interpreted by me (1pt. min.). @ -None done What testing was considered but not performed or refused? (CT, X-rays, U/S, labs)? Why? @ -None What meds were considered but not given or refused? Why? @ -None Did you discuss the management of the patient with other professionals (professionals i.e. , PA, WATERPROO[employer] COATING MACHINE TENDER, lab, RT, psych nurse, social service coordinator, machine shorthand teacher, teacher, fire control officer, pillowcase cleaner)? Give summary @ -No Was smoking cessation discussed for >3mins.? @ -No Was critical care preformed (if so, how long)? @ -No Were there social determinants of health that impacted care today? How? (Homelessness, low income, unemployed, alcoholism, drug addiction, transportation, low edu. Level, literacy, decrease access to med. care, longterm, rehab)? @ -No Was there de-escalation of care discussed even if they declined (Discuss DNR or withdrawal of care, Hospice)? DNR status @ -No What co-morbidities impacted this encounter? (DM, HTN, Smoking, COPD, CAD, Cancer, CVA, ARF, Chemo, Hep., AIDS, mental health diagnosis, sleep apnea, morbid obesity)? @ -None Was patient admitted / discharged? Hospital course, mention meds given and route, prescriptions, significant lab abnormalities, going to OR and other pertinent info. @ -The patient is a 67-year-old female presenting for evaluation post head injury. Last night she fell out of bed and hit her head on the nightstand, no loss of consciousness or blood thinners. On physical examination there are no focal neurological deficits. No tenderness along the neck and she has full range of motion. She is complaining of pain at the back of head,the lower back, on the right shoulder. X-rays and CT showed no acute process. Patient is educated on these findings. Educated on supportive treatment at home and provided with a starter pack cyclobenzaprine. Do not take cyclobenzaprine before driving or operating heavy machinery as it may cause drowsiness.Follow-up with PCP. Report back to ER with any new or worsening symptoms. Discussed return parameters and answered all questions. Patient conveyed verbal understanding and agreed to the plan. I discussed this case in detail with my attending Dr. Art Undiagnosed new problem with uncertain prognosis? @ -No Drug Therapy requiring intensive monitoring for toxicity (Heparin, Nitro, Insulin, Cardizem)? @ -No Were any procedures done? @ -No Diagnosis/symptom? @ -Head injury Acute, or Chronic, or Acute on Chronic? @ -Acute Uncomplicated (without systemic symptoms) or Complicated (systemic symptoms)? @ -Uncomplicated Side effects of treatment? @ -No Exacerbation, Progression, or Severe Exacerbation? @ -No Poses a threat to life or bodily function? How? (Chest pain, [place], [place], pneumonia, PE, COPD, DKA, ARF, appy, cholecystitis, CVA, Diverticulitis, Homicidal, Suicidal, threat to staff... and all critical care pts) @ -No Disposition Clinical Impression: Closed head injury Disposition: HOME SELF-CARE Condition: Good Instructions (If sedation given, give patient instructions): Head Injury (ED) Additional Instructions: Follow-up with PCP. Report back to ER with any new or worsening symptoms. Take medication as prescribed, do not take cyclobenzaprine before driving or operating heavy machinery as it may cause drowsiness. Take Motrin and Tylenol as needed for pain control. Is patient prescribed a controlled substance at d/c from ED?: No Referrals: Rubén Figueroa DO [Primary Care Provider] - 1-2 days Time of Disposition: 22:47
--- NOTE | 2023-01-29 21:49 | CT ---
EXAMINATION TYPE: CT brain delmi felix DATE OF EXAM: 01/29/2023 COMPARISON: 09/01/2015 CT brain HISTORY: pt fell out of bed and hit head on nightstand, pain CT DLP: 1523.9 mGycm Automated exposure control for dose reduction was used. The ventricles have normal size. There is no mass effect or midline shift. No sign of intracranial he morrhage. The calvarium is intact. No evidence of cerebral edema. Skull base is intact. There is norm al aeration of the mastoid sinuses. Cervical vertebra have normal alignment. There is mild narrowing at the C5-6 and C6-7 disc spaces wit h spurring of the endplates. Posterior elements are intact. Facet joints are intact. There is hypertr ophic multilevel mild cervical facet arthropathy. Prevertebral soft tissues are intact. IMPRESSION: Negative CT scan of the brain. No change. Mild spondylotic changes in the cervical spine. No fracture.
--- NOTE | 2023-01-29 21:53 | XR ---
EXAMINATION TYPE: XR shoulder complete RT DATE OF EXAM: 01/29/2023 COMPARISON: NONE HISTORY: Fall. Pain TECHNIQUE: 3 views FINDINGS: There is narrowing and spurring at the glenohumeral joint. AC joint is intact. I see no fra cture nor dislocation. There are no erosions. No subluxation. IMPRESSION: Hypertrophic osteoarthritis. No fracture.
--- NOTE | 2023-01-29 21:54 | XR ---
EXAMINATION TYPE: XR lumbar spine 2 or 3V DATE OF EXAM: 01/29/2023 COMPARISON: 02/22/2018 HISTORY: Fall. Pain TECHNIQUE: 3 views FINDINGS: The lumbar vertebra show a slight levoscoliosis. There is mild hypertrophic degenerative di sc changes at L4-5 and L5-S1 with disc space narrowing. No lumbar compression fracture. Posterior rashard ments are intact. Sacroiliac joints are intact. IMPRESSION: There are spondylotic changes in the lower lumbar spine that have progressed compared to old exam. No fracture.
[2023-01-29] MEDS ORDERED: CYCLOBENZAPRINE 10MG STARTER 3 TAB BTL PO STA (22:47)
== END 2023-01-29 22:53 | disposition home or self-care (01) ==
LOC: EC 20:28
DX: S09.90XA Unspecified injury of head, initial encounter (principal); I10 Essential (primary) hypertension; E07.9 Disorder of thyroid, unspecified; Z88.5 Allergy status to narcotic agent; Z90.89 Acquired absence of other organs; Z79.890 Hormone replacement therapy; W06.XXXA Fall from bed, initial encounter; Y92.003 Bedroom of unspecified non-institutional (private) residence as the place of occurrence of the external cause
CPT/HCPCS: 70450; 72100; 72125; 99284

== ENCOUNTER → 2023-02-14 | Outpatient (CLI) | payer MEDICARE ==
--- NOTE | 2023-02-14 20:10 | MR ---
EXAMINATION TYPE: MR brain wo/w con DATE OF EXAM: 02/14/2023 COMPARISON: CT head 01/29/2023 HISTORY: Headache. Melanoma of left leg and left arm. TECHNIQUE: Multiplanar, multisequence images of the brain and brainstem is performed without and with IV contras t, utilizing 9 mL intravenous Gadavist . FINDINGS: Diffusion weighted images demonstrate no evidence of a recent infarct or other diffusion ab normality. There is a couple focal areas of abnormal signal involving the right parietal white matter which are nonspecific but most typical remote ischemia.. The brain volume is age appropriate. Midline structures demonstrate normal morphology. The craniocervical junction appears within normal limits. Post contrast images demonstrate no abnormal enhancement. The dural venous sinuses appear pa tent. Changes of chronic sinusitis. Orbits are symmetric.. IMPRESSION: 1. No acute process. No enhancing mass. 2. Couple small subcentimeter foci of abnormal signal in the right parietal lobe most typical remote white matter microvascular ischemia.
== END | disposition home or self-care (01) ==
LOC: RADMRIMAIN 18:58
PROVIDERS: ATTEND Internal Medicine Hematology & Oncology
DX: C43.72 Malignant melanoma of left lower limb, including hip (principal); C43.62 Malignant melanoma of left upper limb, including shoulder; G93.89 Other specified disorders of brain
CPT/HCPCS: 70553; A9585

== ENCOUNTER → 2023-05-14 | Outpatient (CLI) | payer MEDICARE ==
[2023-05-14 10:10] LABS: African American GFR (CKD) >90 (>60 ml/min/1.73 sqM); Blood Urea Nitrogen 13 mg/dL (7-17); Non-African American GFR(CKD) >90 (>60 ml/min/1.73 sqM)
--- NOTE | 2023-05-14 11:52 | CT ---
EXAMINATION TYPE: CT ChestAbdPelvis w con CT DLP: 1738.7 mGycm, Automated exposure control for dose reduction was used. DATE OF EXAM: 05/14/2023 11:34 AM COMPARISON: 09/15/2022 and dating back to 01/13/2019. CLINICAL INDICATION:Female, 67 years old with history of C43.72; PHH, h/o melanoma of lower left leg Technique: Multiple axial images of the chest, abdomen, and pelvis were obtained. Two-dimensional cor onal and sagittal reconstructions were obtained. Contrast used:100 mL of Isovue 300 with IV Contrast, Oral contrast used: with Oral Contrast Findings: CHEST: LUNGS/ PLEURA: Right middle lobe calcifications unchanged from prior. No focal consolidation, pneumot horax or pleural effusion. No suspicious or new or enlarging pulmonary nodules. AIRWAY: Patent and unremarkable. HEART: Size within normal limits. Calcifications of the pericardium. Are similar prior's. MEDIASTINUM: No gross evidence of adenopathy. VASCULATURE: No aortic aneurysm. MUSCULOSKELETAL: No acute osseous abnormalities. SOFT TISSUES/LYMPH NODES: Unremarkable. LOWER NECK: No significant findings. ABDOMEN: ABDOMEN LIVER: Scattered hypodense lesions of the liver are stable. Findings likely represent hepatic cysts. GALLBLADDER AND BILE DUCTS: Unremarkable. PANCREAS: Unremarkable. SPLEEN: Unremarkable. ADRENAL GLANDS: Unremarkable. KIDNEYS AND URETERS: The left kidney is without evidence for calculus or hydronephrosis. Right kidney exophytic lesion measuring 12 mm is slowly growing since 2019 where it measured 8 mm and 5 mm in 201 8. PELVIS BLADDER: Unremarkable REPRODUCTIVE: Unremarkable. ABDOMEN & PELVIS STOMACH AND BOWEL: No evidence of bowel obstruction. PERITONEUM: No evidence of pneumoperitoneum or free fluid. VASCULATURE: No evidence of aortic aneurysm. MUSCULOSKELETAL: No acute osseous abnormalities, multilevel degeneration changes of the spine with mo derate bilateral hip osteoarthrosis. Left superior acetabulum and right proximal femur sclerotic foci favored represent bone islands. LYMPH NODES: No gross evidence for lymphadenopathy. SOFT TISSUE/ABDOMINAL WALL: Fat-containing umbilical hernia. IMPRESSION: 1. Slowly enlarging right renal exophytic lesion measuring up to 12 mm on today's exam previously 8 mm on 01/13/2019 and 5 mm in 2018. Finding is concerning for solid renal neoplasm until proven otherwi se. Dedicated MRI renal mass protocol is recommended. 2. No evidence for lymphadenopathy or other finding to suggest additional neoplastic process.
== END | disposition home or self-care (01) ==
LOC: RADCTMAIN 09:31
PROVIDERS: ATTEND Internal Medicine Hematology & Oncology
DX: Z03.89 Encounter for observation for other suspected diseases and conditions ruled out (principal); C43.72 Malignant melanoma of left lower limb, including hip; N28.89 Other specified disorders of kidney and ureter
CPT/HCPCS: 82565; 84520; 71260; 74177; 36415; Q9967

== ENCOUNTER → 2023-07-13 | Outpatient (CLI) | payer MEDICARE ==
--- NOTE | 2023-07-16 07:53 | MM ---
Reason for Exam: Screening (asymptomatic). Last mammogram was performed 1 year(s) and 4 month(s) ago. Patient History: Menarche at age 14. First Full-Term at age 35. Late child-bearing (after 30). Postmenopausal. Estrogen and Progesterone for 1 year from age 39 until age 40. 1989, Excisional Biopsy on the Left side. 1989, Excisional Biopsy on the Right side. Risk Values: Pura 5 year model risk: 3.2%. NCI Lifetime model risk: 10.2%. Prior Study Comparison: 03/24/2022 Bilateral MG screening mammo w CAD, [facility]. 03/30/2022 Left US breast workup limited , [facility]. Tissue Density: The breast tissue is heterogeneously dense. This may lower the sensitivity of mammography. Findings: Analyzed By CAD. There is no suspicious group of microcalcifications or new suspicious mass in either breast. Overall Assessment: Benign, BI-RAD 2 Management: Screening Mammogram of both breasts in 1 year. . Patient should continue monthly self-breast exams. A clinical breast exam by your physician is recommended on an annual basis. This exam should not preclude additional follow-up of suspicious palpable abnormalities. Note on Pura scores and lifetime risk: 1. A Pura score greater than 3% is considered moderate risk. If this is the case, consider specialist referral to assess eligibility for a risk reducing agent. 2. If overall lifetime risk for the development of breast cancer is 20% or higher, the patient may qualify for future screening with alternating mammogram and breast MRI. Electronically signed and approved by: Dwaine Mendoza M.D. Radiologis
== END | disposition home or self-care (01) ==
LOC: RADMAMWWP 16:37
PROVIDERS: ATTEND Internal Medicine Hematology & Oncology
DX: Z12.31 Encounter for screening mammogram for malignant neoplasm of breast (principal); Z78.0 Asymptomatic menopausal state
CPT/HCPCS: 77067

== ENCOUNTER → 2023-09-18 | Outpatient (CLI) | payer MEDICARE ==
[2023-09-18 13:52] LABS: African American GFR (CKD) >90 (>60 ml/min/1.73 sqM); Blood Urea Nitrogen 16 mg/dL (7-17); Non-African American GFR(CKD) >90 (>60 ml/min/1.73 sqM)
--- NOTE | 2023-09-20 11:07 | CT ---
EXAMINATION TYPE: CT ChestAbdPelvis w con DATE OF EXAM: 09/18/2023 COMPARISON: 05/14/2023 HISTORY: f/u melanoma CT DLP: 1720 mGycm CONTRAST: CT scan of the chest, abdomen and pelvis is performed with Oral Contrast and with IV Contrast, patien t injected with 100 mL of Isovue 300. CT Chest: LUNGS: The lungs are clear and free of infiltrate or atelectasis. Calcified granuloma right lower lo be. No pulmonary nodule or mass is detected. No pleural effusion or CT evidence of interstitial lung disease. MEDIASTINUM: Thoracic aorta is of normal caliber. The heart is not enlarged. No evidence for media stinal mass or adenopathy. Pericardial calcifications noted on the right. HILAR STRUCTURES: No evidence for mass. No hilar adenopathy is appreciated. OTHER: No significant abnormality. CONTRAST CT ABDOMEN AND PELVIS FINDINGS: LIVER/GB: Metastatic steatosis noted. A few scattered cysts seen. No calcified gallstones. No spac e occupying hepatic lesion. Biliary tree is of normal caliber. PANCREAS: No inflammation. No distinct mass. SPLEEN: No splenic enlargement. No lesion seen. ADRENALS: No nodule. No thickening. KIDNEYS/BLADDER: No hydronephrosis. No nephrolithiasis. Stable 1.2 cm exophytic solid lesion medial right kidney at its mid pole. Small renal cell carcinoma not excluded. No additional renal masses se en. BOWEL: Normal appendix. Normal bowel caliber. No inflammation. GENITAL ORGANS: Calcified uterine leiomyomas seen. LYMPH NODES: No greater than 1cm abdominal or pelvic lymph nodes are appreciated. AORTA: No significant abnormality. OSSEOUS STRUCTURES: No significant abnormality is seen. OTHER: Strandy attenuation left inguinal region likely from prior biopsy and unchanged from prior james dy. IMPRESSION: 1. No evidence of metastatic disease. 2. Stable small solid mass right kidney as noted above. Small renal cell carcinoma is not excluded. 3. Remote granulomatous disease.
== END | disposition home or self-care (01) ==
LOC: RADCTMAIN 12:59
PROVIDERS: ATTEND Internal Medicine Hematology & Oncology
DX: C43.72 Malignant melanoma of left lower limb, including hip (principal); C43.9 Malignant melanoma of skin, unspecified; D41.10 Neoplasm of uncertain behavior of unspecified renal pelvis; F41.9 Anxiety disorder, unspecified; I89.0 Lymphedema, not elsewhere classified; N28.89 Other specified disorders of kidney and ureter; D71 Functional disorders of polymorphonuclear neutrophils; Z71.3 Dietary counseling and surveillance
CPT/HCPCS: 82565; 84520; 71260; 74177; 36415; Q9967

== ENCOUNTER → 2024-07-14 | Outpatient (CLI) | payer MEDICARE ==
[2024-07-14 09:03] LABS: African American GFR (CKD) >90 (>60 ml/min/1.73 sqM); Blood Urea Nitrogen 11 mg/dL (7-17); Non-African American GFR(CKD) >90 (>60 ml/min/1.73 sqM)
--- NOTE | 2024-07-14 10:39 | CT ---
EXAMINATION TYPE: CT ChestAbdPelvis w con CT DLP: 1621.7 mGycm, Automated exposure control for dose reduction was used. DATE OF EXAM: 07/14/2024 10:24 AM COMPARISON: CT chest abdomen and pelvis 09/18/2023, 05/14/2023, 09/15/2022 CLINICAL INDICATION:Female, 69 years old with history of C43.72 MELANOMA; [facility], F/U MELANOMA Technique: Multiple axial images of the chest, abdomen, and pelvis were obtained following the intrav enous administration of 100 mL Isovue-300. Oral contrast was administered. Two-dimensional coronal an d sagittal reconstructions were obtained. Findings: CHEST: LUNGS/ PLEURA: Right middle lobe calcification is unchanged from prior. No focal consolidation, pneum othorax or pleural effusion. No suspicious or new or enlarging pulmonary nodules. AIRWAY: Patent and unremarkable. HEART: Size within normal limits. No pericardial effusionCalcifications of the pericardium are simila r to prior exams. Likely sequela of pericarditis. MEDIASTINUM: No evidence of adenopathy. VASCULATURE: No aortic aneurysm. MUSCULOSKELETAL: No acute osseous abnormalities. Osteoarthritic changes of the right shoulder. SOFT TISSUES/LYMPH NODES: Unremarkable. LOWER NECK: No significant findings. ABDOMEN: ABDOMEN LIVER: Scattered hypodense lesions of the liver are stable. Findings likely represent hepatic cysts. GALLBLADDER AND BILE DUCTS: Unremarkable. PANCREAS: Unremarkable. SPLEEN: Top end of normal for size measuring 14 cm. ADRENAL GLANDS: Unremarkable. KIDNEYS AND URETERS: The left kidney is without evidence for calculus or hydronephrosis or solid mass . No hydronephrosis or nephrolithiasis involving the right kidney. Interval increase in size of heter ogenous enhancing 1.9 cm partially exophytic right mid kidney lesion along the medial aspect (series 3, image 65). Appears to demonstrate some internal fat density. Previously measured 1.2 cm on most re cent exam. No definitive ureter or arteriovenous invasion at this time. Contrast images show within b oth collecting systems on the delayed phase. PELVIS BLADDER: Unremarkable REPRODUCTIVE: Calcified fibroid uterine changes. ABDOMEN & PELVIS STOMACH AND BOWEL: Stomach and duodenum are unremarkable. No focal bowel wall thickening or surroundi ng inflammatory changes. Enteric contrast reaches the ascending colon. No evidence of bowel obstructi on. PERITONEUM: No evidence of pneumoperitoneum or free fluid. VASCULATURE: No evidence of aortic aneurysm. MUSCULOSKELETAL: No acute osseous abnormalities, multilevel degeneration changes of the spine with mo derate bilateral hip osteoarthrosis. Left superior acetabulum and right proximal femur sclerotic foci favored represent bone islands. LYMPH NODES: No gross evidence for lymphadenopathy. SOFT TISSUE/ABDOMINAL WALL: Fat-containing umbilical hernia. Postsurgical changes with similar fluid/ scarring within the left inguinal soft tissues. IMPRESSION: 1. Interval increase in size of right renal exophytic lesion measuring up to 1.5 cm, previously 1.2 cm on most recent prior exam. Appears to have some internal fat density. Finding is concerning for an giomyolipoma versus fat-containing renal cell carcinoma. Dedicated MRI abdomen renal mass protocol is recommended. 2. No evidence for lymphadenopathy or other finding to suggest additional neoplastic process.
--- NOTE | 2024-07-15 17:03 | MM ---
Reason for Exam: Screening (asymptomatic). Last screening mammogram was performed 12 month(s) ago. Patient History: Menarche at age 14. First Full-Term at age 35. Late child-bearing (after 30). Postmenopausal. Estrogen and Progesterone for 1 year from age 39 until age 40. 1989, Excisional Biopsy on the Left side. 1989, Excisional Biopsy on the Right side. Risk Values: Pura 5 year model risk: 3.2%. NCI Lifetime model risk: 9.8%. Prior Study Comparison: 03/24/2022 Bilateral MG screening mammo w CAD, [facility]. 07/13/2023 Bilateral MG screening mammo w CAD, [facility]. Tissue Density: There are scattered areas of fibroglandular density. Findings: Analyzed By CAD. Bilateral areas of asymmetric density are unchanged. Dystrophic calcifications 12:00 right breast are unchanged. There is no suspicious group of microcalcifications or new suspicious mass in either breast. Overall Assessment: Benign, BI-RAD 2 Management: Screening Mammogram of both breasts in 1 year. See note below in regards to patient's increased 5 year Pura score. Patient should continue monthly self-breast exams. A clinical breast exam by your physician is recommended on an annual basis. This exam should not preclude additional follow-up of suspicious palpable abnormalities. Note on Pura scores and lifetime risk: 1. A Pura score greater than 3% is considered moderate risk. If this is the case, consider specialist referral to assess eligibility for a risk reducing agent. 2. If overall lifetime risk for the development of breast cancer is 20% or higher, the patient may qualify for future screening with alternating mammogram and breast MRI. Electronically signed and approved by: Evita Weller M.D. Radiologist
== END | disposition home or self-care (01) ==
LOC: RADCTMAIN 08:26
PROVIDERS: ATTEND Internal Medicine Hematology & Oncology
DX: Z12.31 Encounter for screening mammogram for malignant neoplasm of breast (principal); C43.72 Malignant melanoma of left lower limb, including hip; D41.10 Neoplasm of uncertain behavior of unspecified renal pelvis; R92.323 Mammographic fibroglandular density, bilateral breasts; I89.0 Lymphedema, not elsewhere classified; F41.9 Anxiety disorder, unspecified; Z78.0 Asymptomatic menopausal state; Z85.820 Personal history of malignant melanoma of skin
CPT/HCPCS: 36415; 71260; 74177; 77063; 77067; 82565; 84520

== ENCOUNTER → 2025-03-25 | Outpatient (CLI) | payer MEDICARE ==
[2025-03-25 11:58] LABS: African American GFR (CKD) >90 (>60 ml/min/1.73 sqM); Blood Urea Nitrogen 10 mg/dL (7-17); Non-African American GFR(CKD) >90 (>60 ml/min/1.73 sqM)
--- NOTE | 2025-03-25 14:23 | CT ---
EXAMINATION TYPE: CT ChestAbdPelvis w con DATE OF EXAM: 03/25/2025 COMPARISON: [id number] CLINICAL INDICATION: Female, 69 years old with history of C43.70 malignant melanoma LL limb CT DLP: 1647.60 mGycm Automated exposure control for dose reduction was used. CONTRAST: CT scan of the chest, abdomen and pelvis is performed with Oral Contrast and with IV Contrast, patien t injected with 80ml mL of Isovue 300. FINDINGS: CT chest: There is a stable partially calcified 9 mm right middle lobe nodule stable micronodule in the right l ower lobe. There is no new or suspicious lung mass or nodule. There is no abnormal airspace/consolidative density or abnormal interstitial density. There is no pleural effusion, pleural thickening or pneumothorax. The great vessels and chest are normal there is no mediastinal, hilar or axillary adenopathy. No focal osseous lesions are seen. CT abdomen and pelvis: Gallbladder is normal without distention, pericholecystic fluid, wall thickening or gallstone. There is no biliary ductal dilatation. There is no focal mass or organomegaly involving the liver, pancreas, spleen or adrenal glands.. Ther e are 2 3 stable hypodensities within the liver consistent with stable cysts. There is no solid renal mass or hydronephrosis. There is stable partially fat-containing right extrar enal mass. Slow growing renal cell carcinoma cannot be excluded and continued follow-up is recommende d in lieu of biopsy. There is no retroperitoneal adenopathy or hemorrhage in the caliber of the abdominal aorta is normal . The bowel loops are normal in caliber and there is no dilatation or obstruction. No inflammatory adair ges identified in the bowel wall and mesentery. There is no free intracranial air or fluid. There is a stable calcified uterine fibroid. There is 3.3 cm ill-defined soft tissue density which appears to be stable compared to the prior stud y but has increased significantly when compared to prior study dated 09/18/2023 and 05/14/2023. Given the history of melanoma. Further evaluation indicated. No focal osseous lesions are seen. IMPRESSION: 1. Stable thorax with no evidence of metastatic disease within the thorax. 2. Stable fat-containing right renal mass. Continued follow-up or biopsy is recommended to rule out r enal cell carcinoma. 3. Ill-defined soft tissue density in the left inguinal region likely stable compared to the prior st but significantly increased compared to multiple prior studies. Given history of melanoma, furthe r evaluation may be indicated. [facility], , 03/25/2025 2:20 PM
== END | disposition home or self-care (01) ==
LOC: RADCTMAIN 11:13
PROVIDERS: ATTEND Internal Medicine Hematology & Oncology
DX: C43.72 Malignant melanoma of left lower limb, including hip (principal); D41.10 Neoplasm of uncertain behavior of unspecified renal pelvis; I89.0 Lymphedema, not elsewhere classified; F41.9 Anxiety disorder, unspecified; I10 Essential (primary) hypertension; Z71.3 Dietary counseling and surveillance; N28.89 Other specified disorders of kidney and ureter
CPT/HCPCS: 82565; 84520; 71260; 74177; 36415; Q9967